=== PATIENT | male | born 1980 | race Two or more races ===

== ENCOUNTER 2025-01-30 15:30 | Inpatient (IN) | payer OTHER ==
[~2025-01-30] VITALS: Ht 167.6 cm; Wt 68.0 kg
[2025-01-30] MEDS ORDERED: CRESTOR40 MG PO (15:39)
--- NOTE | 2025-01-30 15:40 | NUR ---
PTE REFEIRE [place]
[2025-01-30 17:28] LABS: HEMATOCRIT 44.3 % (39.0-48.0); HEMOGLOBIN 14.7 g/dL (13-16.00); MEAN CELL VOLUME 91.3 fL (80.0-100.00); MEAN CORPUSCULAR HEMOGLOBIN 30.3 pg (27.00-32.0); MEAN CORPUSCULAR HGB CONC 33.2 g/dl (32.0-36.0); PLATELET COUNT 230 K/uL (150-450); RED BLOOD COUNT 4.85 M/uL (4.00-6.00); RED CELL DISTRIBUTION WIDTH 12.1 % (11.5-14.5)
--- NOTE | 2025-01-30 17:30 | NUR ---
SE EDUCA A PTE SOBRE [place] MEDICO, SE MERI MUESTRAS DE LABORATORIO UTILIZANDO MEDIDAS ASEPTICAS.
[2025-01-30 17:57] LABS: ALBUMIN 3.9 gm/dL (3.4-5.0); BILIRUBIN TOTAL 0.42 mg/dL (0.3-1.2); CALCIUM 8.8 mg/dL (8.5-10.1); CREATININE SERUM 1.06 mg/dL (0.70-1.30); GFR 75.21; GLOBULINA 2.9 G/DL (2.4-3.5); POTASSIUM 4.6 mEq/L (3.5-5.1); TOTAL PROTEIN 6.8 gm/dL (6.4-8.2)
[2025-01-30 17:58] LABS: C-REACTIVE PROTEIN 2.69 MG/DL (0.00-0.29)
[2025-01-30 18:54] LABS: PH,URINE 6.5 (5.0-8.0); URINE APPEARANCE Cloudy; URINE BILIRRUBIN Negative (NEGATIVE); URINE BLOOD Negative; URINE COLOR Dark Yellow; URINE GLUCOSE Negative (NEGATIVE); URINE KETONE Trace (NEGATIVE); URINE LEUKOCYTE Moderate; URINE NITRATE Positive; URINE PROTEIN Negative (NEGATIVE)
[2025-01-30 18:59] LABS: URINE BACTERIA 3482.1 uL (0.0-1933); URINE CAST 1.47 uL (0.0-1.40); URINE EPITHELIAL CELLS 8.8 uL (0.0-38.8); URINE RBC 2.7 uL (0.0-20.8); URINE WBC 325.8 uL (0.0-23.2)
[2025-01-30] MEDS ORDERED: CEFTRIAXONE SODIUM 1,000 MG VIAL IV STA (20:03)
[2025-01-30] MEDS ORDERED: 0.9 % SODIUM CHLORIDE 1,000 ML IV SCH ×2 (20:15→21:00)
[2025-01-30] MEDS ORDERED: CEFTRIAXONE SODIUM 2,000 MG VIAL ONE (20:38)
--- NOTE | 2025-01-30 20:58 | NUR ---
PTE SE EDUCA SOBRE TX MEDICO ORDENADO. SE [place] H/L MARII DE EDEMA. SE ADMINISTRAN MEDICAMENTOS ARIA ORDEN MEDICA, PTE TOLERA LOS MISMOS. PTE CONSULTADO CON MEDICINA INTERNA.
[2025-01-30] MEDS ORDERED: FAMOTIDINE/PF 20 MG in 0.9 % SODIUM CHLORIDE 8 ML IV PUSH SCH (21:05)
[2025-01-30] MEDS ORDERED: TAMSULOSIN HCL 0.4 MG CAP PO SCH (21:06)
[2025-01-30] MEDS ORDERED: KETOROLAC TROMETHAMINE 15 MG VIAL IV ONE (21:15)
[2025-01-30] MEDS ORDERED: KETOROLAC TROMETHAMINE 15 MG VIAL IU PRN (21:15)
[2025-01-30] MEDS ORDERED: ACETAMINOPHEN 500 MG GEL..CAP PO PRN (21:15)
[2025-01-30 23:28] VITALS: BP 135/87; O2SAT 97
[2025-01-31 00:11] VITALS: BP 115/73; BP 164/91; O2SAT 100; O2SAT 97
[2025-01-31 00:30] LABS: INR 1.05; PARTIAL THROMBOPLASTIN TIME 28.2 SECONDS (22.0-34.0); PROTHROMBIN TIME 11.4 SECONDS (9.0-11.5)
[2025-01-31 00:53] LABS: C-REACTIVE PROTEIN 2.78 MG/DL (0.00-0.29)
[2025-01-31 02:24] LABS: PROSTATIC SPECIFIC ANTIGEN 5.34 NG/ML (0.010-4.00)
[2025-01-31] MEDS ORDERED: KETOROLAC TROMETHAMINE 30 MG VIAL IV PRN (07:45)
[2025-01-31 08:31] VITALS: BP 111/73; O2SAT 96
[2025-01-31] MEDS ORDERED: CEFTRIAXONE SODIUM 2,000 MG in 0.9 % SODIUM CHLORIDE 100 ML IV SCH (09:00)
[2025-01-31 16:00] VITALS: BP 111/71; O2SAT 99
[2025-01-31] MEDS ORDERED: LACTOBACILLUS ACIDOPHILUS 1 CAP CAP PO SCH (17:00)
[2025-01-31] MEDS ORDERED: FAMOtidine 20 MG TABLET PO SCH (21:00)
[2025-02-01 00:26] VITALS: BP 108/70; O2SAT 100
[2025-02-01 08:00] VITALS: BP 115/76; BP 128/85; O2SAT 100
[2025-02-01 16:00] VITALS: BP 106/67; O2SAT 98
[2025-02-02 00:12] VITALS: BP 118/75; O2SAT 97
[2025-02-02 07:16] LABS: ALBUMIN 3.5 gm/dL (3.4-5.0); BILIRUBIN TOTAL 0.32 mg/dL (0.3-1.2); CALCIUM 8.9 mg/dL (8.5-10.1); CREATININE SERUM 0.82 mg/dL (0.70-1.30); GFR 101.15; MAGNESIUM 2.1 mg/dL (1.8-2.4); PHOSPHOROUS 3.6 mg/dL (2.5-4.9); POTASSIUM 4.29 mEq/L (3.5-5.1); TOTAL PROTEIN 6.5 gm/dL (6.4-8.2)
[2025-02-02 07:37] LABS: HEMATOCRIT 42.2 % (39.0-48.0); HEMOGLOBIN 14.9 g/dL (13-16.00); MEAN CELL VOLUME 89.6 fL (80.0-100.00); MEAN CORPUSCULAR HEMOGLOBIN 31.6 pg (27.00-32.0); MEAN CORPUSCULAR HGB CONC 35.3 g/dl (32.0-36.0); PLATELET COUNT 230 K/uL (150-450); RED BLOOD COUNT 4.71 M/uL (4.00-6.00); RED CELL DISTRIBUTION WIDTH 12.1 % (11.5-14.5)
[2025-02-02 07:41] LABS: ERYTHROCYTE SEDIMENTATION RATE 25 mm/hr
[2025-02-02 08:57] VITALS: BP 94/62; O2SAT 97
== END 2025-02-02 14:48 | disposition home or self-care (01) | DRG 690 ==
LOC: ER 15:31 → SURH 21:38 → SEC-K 21:38 → SURH 21:53
PROVIDERS: General Practice; ADMIT Student in an Organized Health Care Education/Training Program; ATTEND Student in an Organized Health Care Education/Training Program
PROC: BW21ZZZ Computerized Tomography (CT Scan) of Abdomen and Pelvis (ICD-10-PCS; principal; 2025-01-30)
DX: N39.0 Urinary tract infection, site not specified (principal); N41.0 Acute prostatitis; E78.5 Hyperlipidemia, unspecified